=== PATIENT | female | born 1990 | race Caucasian/White ===

== ENCOUNTER 2019-02-18 19:38 | Inpatient (IN) | payer OTHER | END 2019-02-20 12:45 | disposition home or self-care (01) | LOC: JLDR 19:38 → J3W 22:19 ==

== ENCOUNTER 2020-04-11 05:21 | Emergency (ER) | payer OTHER ==
--- NOTE | 2020-04-11 05:36 | PDOC ---
History of Present Illness - General Stated Complaint: URINARY PROBLEM Time Seen by Provider: 04/11/20 05:35 Past History - Medical History Allergies/Adverse Reactions: Allergies Allergy/AdvReac Type Severity Reaction Status Date / Time No Known Allergies Allergy Verified 02/18/19 20:13 Home Medications: Ambulatory Orders Pnv No.95/Ferrous Fum/Folic AC [ Formula] 1 each PO DAILY 02/18/19 Lactobacillus Acidophilus [Acidophilus] 1 each PO BID #20 capsule 01/23/20 Cephalexin [Keflex] 500 mg PO BID 7 Days #14 capsule 04/11/20 Asthma: No Cancer: No Cardiac Disorders: No COPD: No Diabetes: No HTN: No Seizures: No Thyroid Disease: No - Psycho-Social/Smoking History Smoking History: Never smoked Have you smoked in the past 12 months: No Medical Decision Making - Medical Decision Making 04/11/20 05:43 HPI: 29yo F 15wks hx BV and UTI (on ED visit 01/19/20 for urinary frequency and hesitancy and midline lower abdominal pain changes with urination, tx'd for PID (G/C/T negative) then cipro and flagyl per UC for BV and E coli) presents from home c/o urinary hesitancy and urgency/frequency associated with suprapubic burning discomfort only with urination or palpation and R flank pain, exactly same as prior sx in January. Pt states doxy helped then with resolution of sx within 2 days, also got 1 additional med but does not remember which one, denies getting the 2 additional meds cipro and flagyl. Sexually active with same x8 years, no chance of STIs. Denies vaginal discharge, genital irritation, vaginal bleeding, cramping abdominal pain, D/C, F/C, CP, SOB, trauma. Pt seeing pyrometer temperature regulator regularly, next appt Tuesday. Endorses N/V of , unchanged recently. ROS: Constitutional: Negative for chills, fever, fatigue, diaphoresis. HENT: Negative for sore throat, rhinorrhea, congestion. Eyes: Negative for visual disturbance. Respiratory: Negative for shortness of breath, cough, and wheezing. Cardiovascular: Negative for chest pain, palpitations, and leg swelling. Gastrointestinal: Positive for suprapubic pain, nausea, vomiting. Negative for blood in stool, constipation, diarrhea. Genitourinary: Positive for dysuria, urinary hesitancy and urgency/frequency, R flank pain. Negative for hematuria. Musculoskeletal: Negative for myalgias, back pain, and neck pain. Skin: Negative for rash. Neurological: Negative for light-headedness, dizziness, vertigo, syncope, weakness, numbness and headaches. Psychiatric/Behavioral: Negative for behavioral problems and confusion. PE: Gen: Alert, NAD, comfortable-appearing. HEENT: PERRL, EOMI, MMM, NCAT. No conjunctival pallor. Sclera are non-icteric. CV: Regular rate and rhythm. No murmurs, rubs, or gallops. PULM: No resp distress. CTAB, no wheezes, rales, or rhonchi. ABD: soft, suprapubic TTP, ND, no rebound tenderness or guarding, no CVA tenderness. PELVIC: External genitalia unremarkable. No blood discharge seen with speculum exam. +white nonodourous physiologic appearing discharge. Cervix visualized and is unremarkable (closed in appearance without any protruding material). Bimanual exam without cervical motion tenderness, adnexal tenderness, or any masses appreciated. Swabs for testing for gonorrhea, chlamydia and wet prep were obtained. BACK: No TTP of c/t/l-spine. No step-offs or deformities. MSK: No bony deformities. 2+ pulses in all extremities. NEURO: AAOx3. PERRL. No gross CN deficits. Strength and sensation grossly intact throughout. EXTREMITIES: No cyanosis. No clubbing. No edema. No calf tenderness. PSYCH: Normal mood and thought pattern. SKIN: Warm and dry. Normal capillary refill. No rashes. No jaundice. MDM: 29yo F 15wks hx BV and UTI (on ED visit 01/19/20 for urinary frequency and hesitancy and midline lower abdominal pain changes with urination, tx'd for PID (G/C/T negative) then cipro and flagyl per UC for BV and E coli) presents from home c/o urinary hesitancy and urgency/frequency associated with suprapubic burning discomfort only with urination or palpation and R flank pain, exactly same as prior sx in January. Hemodynamically stable, afebrile, PE notable for suprapubic TTP, no CVA tenderness, benign pelvic exam (white nonodourous physiologic appearing discharge). Ddx: presentation c/w UTI. No systemic s/s of infection or pyelo. No risk factors or exam findings concerning for STI, PID, trichomonis, BV, or yeast infection. -UA/UC/UPreg -Pain management: pt denies -Dispo: likely d/c home pending w/u 04/11/20 06:35 UA positive for UTI Keflex and rx Safe for discharge Will discharge home with pyrometer temperature regulator f/u. Return precautions given. Pt understands all discharge instructions and all questions were answered. Discharge - Discharge Information Problems reviewed: Yes Clinical Impression/Diagnosis: UTI in Condition: Stable Disposition: HOME - Admission No - Additional Discharge Information Prescriptions: Cephalexin [Keflex] 500 mg PO BID 7 Days #14 capsule - Follow up/Referral - Patient Discharge Instructions Patient Printed Discharge Instructions: DI for Urinary Tract Infection (UTI) Additional Instructions: You have been seen in the Emergency Department for your urinary symptoms and abdominal pain. Your exam and labs indicate that you have a UTI (urinary tract infection). We have sent a Keflex prescription to your pharmacy - take it as prescribed. You will receive a call in 2-3 days with your urine culture result in case you need to switch antibiotics or start an additional antibiotic. Follow up with your sports administrator as planned on Tuesday. Return to the Emergency Department immediately if you experience fever, vomiting, passing out, vaginal bleeding, worsening pain, or any other new or worsening symptom. - Post Discharge Activity
[2020-04-11 05:45] VITALS: BP 138/84; PULSE 77; TEMP 98.1; BMI 22.6
[2020-04-11 06:06] LABS: URINE APPEARANCE CLEAR; URINE BILIRUBIN NEGATIVE (NEGATIVE); URINE COLOR YELLOW; URINE GLUCOSE (UA) NEGATIVE (NEGATIVE); URINE KETONE NEGATIVE (NEGATIVE); URINE LEUK ESTERASE 2+ (NEGATIVE); URINE NITRITE NEGATIVE (NEGATIVE); URINE PROTEIN NEGATIVE (NEGATIVE); URINE UROBILINOGEN 0.2 mg/dL (0.2-1.0)
--- NOTE | 2020-04-11 06:15 | PDOC ---
Attending Attestation - Resident Resident Name: Renetta Kathleen - ED Attending Attestation I have performed the following: I have examined & evaluated the patient, The case was reviewed & discussed with the resident, I agree w/resident's findings & plan, Exceptions are as noted - HPI HPI: 04/17/20 21:52 See resident HPI - Physicial Exam PE: 04/17/20 21:52 Agree with documented exam - Medical Decision Making 04/17/20 21:52 29F with complaints consistent with cystits, no exam findings consistent with proximal infection or PID f/u ua/ucx dispo per clinical course +ua, uncomplicated UTI in context of abx, dc with routine pcp, ob f/u Discharge - Discharge Information Problems reviewed: Yes Clinical Impression/Diagnosis: UTI in Condition: Stable Disposition: HOME - Additional Discharge Information Prescriptions: Cephalexin [Keflex] 500 mg PO BID 7 Days #14 capsule - Follow up/Referral - Patient Discharge Instructions Patient Printed Discharge Instructions: DI for Urinary Tract Infection (UTI) Additional Instructions: You have been seen in the Emergency Department for your urinary symptoms and abdominal pain. Your exam and labs indicate that you have a UTI (urinary tract infection). We have sent a Keflex prescription to your pharmacy - take it as prescribed. You will receive a call in 2-3 days with your urine culture result in case you need to switch antibiotics or start an additional antibiotic. Follow up with your bulk tank driver as planned on Tuesday. Return to the Emergency Department immediately if you experience fever, vomiting, passing out, vaginal bleeding, worsening pain, or any other new or worsening symptom. - Post Discharge Activity
[2020-04-11] MEDS ORDERED: CEPHALEXIN MONOHYDRATE 500 MG CAPSULE (UD) PO ONE (06:32)
[2020-04-11] MEDS ORDERED: CEPHALEXIN MONOHYDRATE 500 MG CAPSULE (UD) ONE (06:42)
== END 2020-04-11 06:49 | disposition home or self-care (01) ==
LOC: JER 05:21
DX: O23.42 Unspecified infection of urinary tract in pregnancy, second trimester (principal); Z3A.15 15 weeks gestation of pregnancy
CPT/HCPCS: 81003; 84703; 87086; 87186; 99284-25

== ENCOUNTER 2020-10-05 19:45 | Inpatient (IN) | payer OTHER ==
[2020-10-05] MEDS ORDERED: OXYTOCIN 20 UNITS in 0.9% NS 20 UNIT/1,000 ML INFUS.BAG IV ONE ×2 (20:04→22:38)
[2020-10-05] MEDS ORDERED: WITCH HAZEL 50% (TUCKS) 40 PAD/JAR PAD TP PRN (20:21)
[2020-10-05] MEDS ORDERED: METHYLERGONOVINE MALEATE 0.2 MG/1 ML AMP IM PRN (20:21)
[2020-10-05] MEDS ORDERED: BENZOCAINE 20% 57 GM BOTTLE TP PRN (20:21)
[2020-10-05] MEDS ORDERED: BENZOCAINE 28 GM HEMORRHOIDAL OINTMENT PR PRN (20:21)
[2020-10-05] MEDS ORDERED: BISACODYL 10 MG SUPP.RECT PR PRN (20:21)
[2020-10-05] MEDS ORDERED: ELECTROLYTE-148 SOLN 1,000 ML IV SCH (20:30)
[2020-10-05] MEDS: IBUPROFEN 600 MG TABLET (FP) PO PRN (20:30)
[2020-10-05] MEDS: ACETAMINOPHEN 325 MG TABLET (FP) PO PRN (20:30)
[2020-10-05 20:32] LABS: BASO % 0.2 % (0-2.0); HEMATOCRIT 38.8 % (32.4-45.2); HEMOGLOBIN 13.5 GM/dL (10.7-15.3); LYMPH % 11.3 % (8-40); MCH 33.3 pg (25.7-33.7); MCHC 34.8 g/dl (32.0-36.0); MEAN CELL VOLUME 95.8 fl (80-96); MEAN PLT VOLUME 8.7 fl (7.5-11.1); MONO % 3.2 % (3.8-10.2); NEUT % 85.3 % (42.8-82.8); PLATELET COUNT 169 K/MM3 (134-434); RBC 4.05 M/mm3 (3.60-5.2); RDW 13.1 % (11.6-15.6)
[2020-10-05 20:40] LABS: INR 1.02 (0.83-1.09); PROTHROMBIN TIME (PATIENT) 12.3 SEC (9.7-13.0)
[2020-10-05 20:43] LABS: ACTIVATED PTT 25.6 SECONDS (25.2-36.5)
[2020-10-05 20:52] LABS: POTASSIUM 3.8 mmol/L (3.5-5.1)
[2020-10-05 20:54] LABS: CALCIUM 8.5 mg/dL (8.5-10.1)
[2020-10-05 20:55] LABS: ALBUMIN 3.4 g/dl (3.4-5.0); BLOOD UREA NITROGEN 6.6 mg/dL (7-18)
[2020-10-05 20:57] LABS: CREATININE 0.8 mg/dL (0.55-1.3)
[2020-10-05 21:00] LABS: BILIRUBIN,TOTAL 0.6 mg/dL (0.2-1); TOT PROT 7.1 g/dl (6.4-8.2)
[2020-10-05] MEDS ORDERED: OXYTOCIN 20 UNITS in 0.9% NS 20 UNIT/1,000 ML INFUS.BAG IV SCH (21:00)
[2020-10-05] MEDS ORDERED: SENNOSIDES/DOCUSATE COMBO (SENNA PLUS) TABLET (UD) PO SCH (22:00)
[2020-10-05 22:21] LABS: EPI CELLS 18 /uL (0-25.1); HYALINE CASTS 2 /uL (0-3.1); PH,URINE 5.5 (5.0-8.0); URINE APPEARANCE CLEAR; URINE BACTERIA 142 /uL (0-1359); URINE BILIRUBIN NEGATIVE (NEGATIVE); URINE COLOR YELLOW; URINE GLUCOSE (UA) NEGATIVE (NEGATIVE); URINE KETONE 3+ (NEGATIVE); URINE LEUK ESTERASE NEGATIVE (NEGATIVE); URINE NITRITE NEGATIVE (NEGATIVE); URINE PROTEIN 2+ (NEGATIVE); URINE RBC 13 /uL (0-23.9); URINE WBC 4 /uL (0-25.8)
[2020-10-05 22:25] VITALS: BMI 24.3
[2020-10-05 22:25] LABS: COCAINE, UR NEGATIVE ng/ml (CUTOFF=300); METHADONE, UR NEGATIVE ng/ml (CUTOFF=300); OPIATES, URI NEGATIVE ng/ml (CUTOFF=300); PHENCYCLIDINE,URINE NEGATIVE ng/ml (CUTOFF=25); URINE AMPHETAMINES NEGATIVE ng/ml (CUTOFF=500); URINE BARBITURATES NEGATIVE ng/ml (CUTOFF=200); URINE BENZODIAZEPINES NEGATIVE ng/ml (CUTOFF=200)
[2020-10-06] MEDS: ACETAMINOPHEN 325 MG TABLET (FP) PO PRN ×3 (00:36→18:29)
[2020-10-06] MEDS: IBUPROFEN 600 MG TABLET (FP) PO PRN ×2 (00:36→18:30)
[2020-10-06] MEDS ORDERED: oxyCODONE HCL 5 MG TABLET ONE (03:28)
[2020-10-06] MEDS: oxyCODONE HCL 5 MG TABLET PO PRN ×2 (03:30→09:27)
[2020-10-06] MEDS ORDERED: OXYTOCIN 20 UNITS in 0.9% NS 20 UNIT/1,000 ML INFUS.BAG IV ONE (06:02)
[2020-10-06 08:56] LABS: BASO % 0.2 % (0-2.0); EOS % 0.3 % (0-4.5); HEMATOCRIT 29.3 % (32.4-45.2); HEMOGLOBIN 10.5 GM/dL (10.7-15.3); LYMPH % 17.5 % (8-40); MCH 33.8 pg (25.7-33.7); MCHC 35.8 g/dl (32.0-36.0); MEAN CELL VOLUME 94.3 fl (80-96); MEAN PLT VOLUME 8.6 fl (7.5-11.1); MONO % 6.1 % (3.8-10.2); NEUT % 75.9 % (42.8-82.8); PLATELET COUNT 147 K/MM3 (134-434); RDW 13.2 % (11.6-15.6); WHITE BLOOD COUNT 8.9 K/mm3 (4.0-10.0)
[2020-10-07] MEDS: ACETAMINOPHEN 325 MG TABLET (FP) PO PRN ×3 (00:20→16:12)
[2020-10-07] MEDS: IBUPROFEN 600 MG TABLET (FP) PO PRN ×3 (00:21→16:12)
[2020-10-08] MEDS: IBUPROFEN 600 MG TABLET (FP) PO PRN ×3 (06:00→20:48)
[2020-10-08] MEDS: ACETAMINOPHEN 325 MG TABLET (FP) PO PRN ×3 (06:01→20:48)
[2020-10-08 09:01] LABS: BILIRUBIN,DIRECT 0.1 mg/dL (0.0-0.2)
[2020-10-08 09:03] LABS: BILIRUBIN,TOTAL 0.5 mg/dL (0.2-1)
[2020-10-08 12:05] VITALS: TEMP 98
[2020-10-09 10:02] VITALS: BP 113/76; PULSE 70
== END 2020-10-09 12:15 | disposition home or self-care (01) | DRG 807 ==
LOC: JLDR 19:45 → J3W 22:40
PROVIDERS: ADMIT Obstetrics & Gynecology; ATTEND Obstetrics & Gynecology
PROC: 10E0XZZ Delivery of Products of Conception, External Approach (ICD-10-PCS; principal; 2020-10-05)
DX: O62.3 Precipitate labor (principal); Z37.0 Single live birth; O26.893 Other specified pregnancy related conditions, third trimester; Z3A.40 40 weeks gestation of pregnancy
CPT/HCPCS: 36415; 59409; 72170-TC-FY; 80053; 80307; 81003; 82247; 82248; 85025; 85610; 85730; 86762; 86780; 86850; 86900; 86901; 87086; 87340; 87389; 97116-GP; 97161-GP; C9803; U0003

== ENCOUNTER 2020-10-13 01:35 | Emergency (ER) | payer OTHER ==
[2020-10-13 01:43] VITALS: BMI 23.6
[2020-10-13] MEDS ORDERED: ACETAMINOPHEN 500 MG TABLET (FP) PO ONE (02:30)
[2020-10-13] MEDS ORDERED: ACETAMINOPHEN 325 MG TABLET (FP) ONE (02:40)
[2020-10-13 06:33] VITALS: TEMP 97.6
[2020-10-13] MEDS ORDERED: IBUPROFEN 600 MG TABLET (FP) PO ONE ×2 (06:40→07:47)
[2020-10-13 16:43] VITALS: BP 125/80; PULSE 68
== END 2020-10-13 16:15 | disposition home or self-care (01) ==
LOC: JER 01:35
DX: R10.2 Pelvic and perineal pain (principal); S33.4XXA Traumatic rupture of symphysis pubis, initial encounter; K59.00 Constipation, unspecified
CPT/HCPCS: 72170-TC-FY; 99285-25

== ENCOUNTER 2021-09-09 19:44 | Emergency (ER) | payer OTHER ==
[2021-09-09 20:37] VITALS: BP 144/78; TEMP 98.2; BMI 23.6
[2021-09-09] MEDS ORDERED: ACETAMINOPHEN 500 MG TABLET (FP) PO ONE (22:18)
[2021-09-09] MEDS ORDERED: DEXAMETHASONE LIQUID 0.5 MG/5 ML PO ONE (22:36)
[2021-09-09] MEDS ORDERED: DEXAMETHASONE SOD PHOSPHATE 10 MG/1 ML VIAL ONE (22:39)
[2021-09-09 22:58] VITALS: PULSE 98
[2021-09-11 14:10] LABS: SARS-CoV-2 NAA Detected (Not Detected)
== END 2021-09-09 23:29 | disposition home or self-care (01) ==
LOC: JER 19:44
DX: U07.1 COVID-19 (principal); J02.9 Acute pharyngitis, unspecified; R05.1 Acute cough
CPT/HCPCS: 87070; 99283-25; C9803; U0003; U0005

== ENCOUNTER 2021-09-22 08:18 | Emergency (ER) | payer OTHER ==
[2021-09-22 08:27] VITALS: BP 143/90; TEMP 97.9; BMI 22.1
[2021-09-22] MEDS ORDERED: KETOROLAC TROMETHAMINE 60 MG/2 ML VIAL IM ONE (09:12)
[2021-09-22] MEDS ORDERED: KETOROLAC TROMETHAMINE 60 MG/2 ML VIAL ONE (09:28)
[2021-09-22 09:47] VITALS: PULSE 90
== END 2021-09-22 09:51 | disposition home or self-care (01) ==
LOC: JER 08:18
PROC: 3E0233Z Introduction of Anti-inflammatory into Muscle, Percutaneous Approach (ICD-10-PCS; principal; 2021-09-22)
DX: J02.9 Acute pharyngitis, unspecified (principal)
CPT/HCPCS: 87651; 99284-25; C9803; U0003; U0005

== ENCOUNTER 2024-01-16 15:55 | Emergency (ER) | payer OTHER ==
[2024-01-16 16:19] VITALS: BP 141/89; PULSE 78; RESP 18; TEMP 98.5; BMI 23.6
== END 2024-01-16 17:31 | disposition home or self-care (01) ==
LOC: JERFT 15:55
DX: K64.4 Residual hemorrhoidal skin tags (principal); K59.00 Constipation, unspecified
CPT/HCPCS: 99283-25